=== PATIENT | male | born 1955 | race African-American/Black ===

== ENCOUNTER 2022-04-11 22:31 | Emergency (ER) | payer OTHER ==
[~2022-04-11] VITALS: Ht 190.5 cm; Wt 100.0 kg
[2022-04-12] MEDS ORDERED: PSEU-207 MT (01:40)
[2022-04-12] MEDS ORDERED: AMOX1TAB16 MT (01:40)
[2022-04-12] MEDS ORDERED: AMOXICILLIN/POTASSIUM CLAVULANATE 875/125MG TAB PO ONE (01:45)
[2022-04-12 01:54] VITALS: BP 119/78
== END 2022-04-12 01:56 | disposition home or self-care (01) ==
LOC: ER 22:31
DX: H66.92 Otitis media, unspecified, left ear (principal); Z88.5 Allergy status to narcotic agent
CPT/HCPCS: 99283